=== PATIENT | male | born 1960 | race American Indian/Alaskan Native ===

== ENCOUNTER 2018-02-03 10:05 | Day surgery (SDC) | payer BC, OTHER ==
[~2018-02-03] VITALS: Ht 180.3 cm; Wt 93.9 kg
[~2018-02-03 10:05] MED LIST: AMLODIPINE BESYL5 MG PO; BACTRIM DS TAB1 EACH PO; CLINDAMYCIN HC300 MG PO; COREG25 MG PO; COZAAR25 MG PO; CYCLOBENZAPRINE10 MG PO; HYDROCHLOROTHIA25 MG PO; HYDROCODON-ACE1 EA10 PO; IBUPROFEN800 MG PO; LOSARTAN POTAS100 MG PO; LOSARTAN-HCTZ1 EAC2 PO; METOPROLOL SUC100 MG PO; NORCO 10-325 T1 EACH PO; NORVASC10 MG PO; OXYCODONE HCL5 M1 PO; SENOKOT8.6 MG PO; SUBOXONE 2 MG-1 EAC2 SL; TOPROL XL100 MG PO
--- NOTE | 2018-02-03 14:32 | NUR ---
02/03/18 1432 Lucy Falcon 1420 PT ARRIVED DROWSY, RESP EVEN AND UNLABORED. PT MAINTAINING AIRWAY
--- NOTE | 2018-02-08 13:01 | OR ---
[facility] [address], [place] [address] Signed DATE OF OPERATION: 02/03/2018 SURGEON: Duong Woodard MD COLONOSCOPY REPORT PREOPERATIVE DIAGNOSIS: Screening. POSTOPERATIVE DIAGNOSES: 1. A 7 mm polyp at 18 cm. 2. Minimal sigmoid diverticulosis. 3. External hemorrhoids. PROCEDURE: Colonoscopy with hot biopsy. ESTIMATED BLOOD LOSS: None. INDICATIONS: Danny is a 57-year-old gentleman, who was asked to see me for two reasons. First, he has a periumbilical incisional hernia. We are going to need to repair at some point. He also has the need of a screening colonoscopy. He said he has no lower GI complaints and there is no family history of colon cancer or polyps. I gave him a pamphlet on colonoscopy and we looked at that together along with the risks including, but not limited to gas bloating, crampy abdominal pain, bleeding, perforation, requiring surgery, and missed diagnosis. He also understands the need for IV conscious sedation. He has a significant past medical history including his peripheral arterial disease as well as his need for Suboxone. He also has a previous alcoholism and chronic pain syndrome. As a result, we did ask our anesthesia provider to help us with increased monitoring sedation with propofol. He had expressed understanding and wished to proceed. PROCEDURE NOTE: Danny was taken into our endoscopy suite and placed in the left lateral decubitus position. He was given IV sedation with propofol per nurse ship runner. His systolic blood pressures were running 180 to 210. He said he had taken his blood pressure pills this morning. He ended up with labetalol with no response and so metoprolol was added. We then added some hydralazine as well. His blood pressure was then running down around Electronically Signed By: DUONG WOODARD MD 02/04/18 7296 Electronically Signed By: DUONG WOODARD MD 02/08/18 6490 PATIENT NAME: DANNY JUNIOR OPERATIVE REPORT DATE OF : 60 REPORT #: [id number] PHYSICIAN: DUONG WOODARD MD PCP: NO PRIMARY CARE PHYSICIAN REPORT IS CONFIDENTIAL AND NOT TO BE RELEASED WITHOUT AUTHORIZATION [facility] [address], [place] [address] Signed 180. Digital rectal exam was performed and this was unusual. I really could not find his prostate on exam. It was quite flat and when I reviewed his notes, I can see that he said anything done to the prostate. After this, the adult colonoscope was introduced and advanced under direct visualization up to the cecum without difficulty. His prep was moderately poor. He had multiple areas of liquid particulate stool matter. Most of that I was able to irrigate and suction out. The scope was then slowly withdrawn. We had taken pictures throughout for photodocumentation. We did see some a few diverticula in the sigmoid colon. He had one polyp at 18 cm that we removed with the help of hot biopsy forceps. The scope was then retroflexed and there was no additional pathology noted above the anal canal. He did have just a little bit external hemorrhoids. After this, the gas was suctioned out and the colonoscope removed. Danny tolerated the procedure quite well. RECOMMENDATIONS: I will see Danny back in my office in 7 to 14 days to review his pathology results. We will also discuss his periumbilical incisional hernia. MD ABDIEL Austin/JANEEN /[id number] cc: MD Christi Sosa Copies: MARIA DEL CARMEN RAMIREZ MD, ELIZABETH ~ Electronically Signed By: DUONG WOODARD MD 02/04/18 0753 Electronically Signed By: DUONG WOODARD MD 02/08/18 1920 PATIENT NAME: DANNY JUNIOR OPERATIVE REPORT DATE OF : 60 REPORT #: [id number] PHYSICIAN: DUONG WOODARD MD PCP: NO PRIMARY CARE PHYSICIAN REPORT IS CONFIDENTIAL AND NOT TO BE RELEASED WITHOUT AUTHORIZATION
== END 2018-02-03 15:00 | disposition home or self-care (01) ==
LOC: OPS 10:05 → DS 10:05 → OPS 10:30
PROVIDERS: Colon & Rectal Surgery
PROC: 0DBE8ZZ Excision of Large Intestine, Via Natural or Artificial Opening Endoscopic (ICD-10-PCS; principal; 2018-02-03 11:45)
DX: Z12.11 Encounter for screening for malignant neoplasm of colon (principal); D12.6 Benign neoplasm of colon, unspecified; K57.30 Diverticulosis of large intestine without perforation or abscess without bleeding; K64.4 Residual hemorrhoidal skin tags; G89.4 Chronic pain syndrome; K43.9 Ventral hernia without obstruction or gangrene; F41.9 Anxiety disorder, unspecified; F32.9 Major depressive disorder, single episode, unspecified; H91.90 Unspecified hearing loss, unspecified ear; E88.81 Metabolic syndrome and other insulin resistance; I10 Essential (primary) hypertension; E55.9 Vitamin D deficiency, unspecified; Z79.899 Other long term (current) drug therapy
CPT/HCPCS: J0360; J2704; J3010; J7120

== ENCOUNTER 2022-09-10 09:16 | Emergency (ER) | payer BC, OTHER ==
[~2022-09-10] VITALS: Ht 177.8 cm; Wt 97.5 kg
[~2022-09-10 09:16] MED LIST changes: +DILAUDID8 MG PO; +IBU800 MG PO
--- OUTSIDE RECORDS SUMMARY | 2022-09-10 09:20 | XMS ---
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 Harpreet has no Care Guidelines for this patient. Laverne VISIT COUNT (12 MO.) 1 DYLON Ervin TOTAL 1 NOTE: Visits indicate total known visits. ED/C VISIT TRACKING (12 MO.) 09/10/2022 09:17 DYLON Coker OR TYPE: Emergency COMPLAINT: - LOWER BACK PAIN INPATIENT VISIT TRACKING (12 MO.) No inpatient visits to display in this time frame [email or web address]
[2022-09-10] MEDS ORDERED: PREDNISONE20 MG PO (11:45)
== END 2022-09-10 11:58 | disposition home or self-care (01) ==
LOC: ED 09:16
DX: S39.012A Strain of muscle, fascia and tendon of lower back, initial encounter (principal); I10 Essential (primary) hypertension; X58.XXXA Exposure to other specified factors, initial encounter; Z87.891 Personal history of nicotine dependence; Z88.0 Allergy status to penicillin; Z88.8 Allergy status to other drugs, medicaments and biological substances; Z79.899 Other long term (current) drug therapy
CPT/HCPCS: 99283; J7512